=== PATIENT | female | born 1935 ===

== ENCOUNTER 2019-01-27 09:21 | Outpatient (CLI) | payer OTHER | END 2019-01-27 09:24 | disposition home or self-care (01) | LOC: SONOGRAMA 09:21 | DX: J44.9 Chronic obstructive pulmonary disease, unspecified (principal); R60.0 Localized edema; I11.9 Hypertensive heart disease without heart failure; F10.20 Alcohol dependence, uncomplicated; F51.12 Insufficient sleep syndrome; F41.1 Generalized anxiety disorder ==

== ENCOUNTER 2019-01-27 10:09 | Outpatient (CLI) | payer OTHER | END 2019-01-27 10:38 | disposition home or self-care (01) | LOC: NUCLEAR 10:09 | DX: I11.9 Hypertensive heart disease without heart failure (principal); J44.9 Chronic obstructive pulmonary disease, unspecified; R60.0 Localized edema; F10.20 Alcohol dependence, uncomplicated; F51.12 Insufficient sleep syndrome; F41.1 Generalized anxiety disorder ==